=== PATIENT | female | born 1980 | race African-American/Black ===

== ENCOUNTER 2018-06-06 12:37 | Emergency (ER) | payer MEDICAID ==
[~2018-06-06] VITALS: Ht 165.1 cm; Wt 123.4 kg
[~2018-06-06 12:37] MED LIST: CLON-528 PO; DIPH25CA83 PO; IBUP-1984 PO; MECL12.584 PO; NEBU-107; ONDA4TAB6 PO; ONDA8TAB9 PO
[2018-06-06] MEDS ORDERED: ipratropium/albuterol 3ml nebule NEB ONE (13:00)
[2018-06-06 13:19] LABS: BASOPHILS % (AUTO) 0.5 % (0-1); EOSINOPHILS # (AUTO) 0.1 X10'3 (0-0.9); EOSINOPHILS % (AUTO) 1.2 % (0-6); HEMATOCRIT 44.1 % (35.0-45.0); HEMOGLOBIN 15.1 g/dl (12.0-16.0); LYMPHOCYTES # (AUTO) 2.6 X10'3 (1.1-4.8); LYMPHOCYTES % (AUTO) 45.3 % (21-51); MEAN CORPUSCULAR HEMOGLOBIN 29.7 PG (27.0-31.0); MEAN CORPUSCULAR HGB CONC 34.2 % (33.0-36.5); MEAN PLATELET VOLUME 8.4 FL (7.4-10.4); MONOCYTES # (AUTO) 0.4 X10'3 (0-0.9); MONOCYTES % (AUTO) 7.7 % (2-12); NEUTROPHILS # (AUTO) 2.6 X10'3 (1.8-7.7); NEUTROPHILS % (AUTO) 45.3 % (42-75); PLATELET COUNT 284 X10'3 (140-440); RED BLOOD COUNT 5.07 X10'6 (4.20-5.60); RED CELL DISTRIBUTION WIDTH 12.8 % (11.5-14.5); WHITE BLOOD COUNT 5.7 X10'3 (4.5-11.0)
[2018-06-06 13:31] LABS: ALANINE AMINOTRANSFERASE 74 U/L (12-78); ALBUMIN 3.3 G/DL (3.4-5.0); ALBUMIN/GLOBULIN RATIO 0.8 (1.1-1.5); ALKALINE PHOSPHATASE 87 IU/L (46-116); ANION GAP 12 (8-16); ASPARTATE AMINO TRANSFERASE 52 U/L (10-37); BILIRUBIN,TOTAL 0.4 MG/DL (0.1-1.0); BLOOD UREA NITROGEN 5 MG/DL (7-18); BUN/CREATININE RATIO 7.8 (6.6-38.0); CALCIUM 8.6 MG/DL (8.5-10.1); CHLORIDE 101 MMOL/L (99-107); CREATININE 0.64 MG/DL (0.40-0.90); GLUCOSE 162 MG/DL (70-104); POTASSIUM 3.3 MMOL/L (3.5-5.1); SODIUM 138 MMOL/L (135-145); TOTAL CARBON DIOXIDE 25.5 MMOL/L (24-32); TOTAL PROTEIN 7.4 G/DL (6.4-8.2); eGFR > 90 ML/MIN
[2018-06-06] MEDS ORDERED: amoxicillin 250mg capsule PO ONE (15:05)
[2018-06-06] MEDS ORDERED: ondansetron 4mg rapidly disintigrating tab PO ONE (15:05)
[2018-06-06] MEDS ORDERED: HYDROcodone/acetaminophen 5mg/325mg tablet PO ONE (15:05)
[2018-06-06] MEDS ORDERED: AMOX500C2 PO (15:07)
[2018-06-06] MEDS ORDERED: ALBU8.5H8 IH (15:07)
[2018-06-06] MEDS ORDERED: ONDA4TAB6 PO (15:07)
[2018-06-06 15:42] VITALS: BP 137/93
== END 2018-06-06 16:49 | disposition home or self-care (01) ==
LOC: ER 12:37
DX: J02.9 Acute pharyngitis, unspecified (principal); I48.91 Unspecified atrial fibrillation; I10 Essential (primary) hypertension; Z86.69 Personal history of other diseases of the nervous system and sense organs; Z98.51 Tubal ligation status; Z88.1 Allergy status to other antibiotic agents; Z98.890 Other specified postprocedural states; Z88.5 Allergy status to narcotic agent; Z88.8 Allergy status to other drugs, medicaments and biological substances; Z79.2 Long term (current) use of antibiotics; Z79.899 Other long term (current) drug therapy
CPT/HCPCS: 36415; 71046; 80053; 83605; 85025; 87040; 87502; 87503; 93005; 94640; 99284

== ENCOUNTER 2018-07-21 12:15 | Emergency (ER) | payer MEDICAID ==
[~2018-07-21] VITALS: Ht 165.1 cm; Wt 118.2 kg
[~2018-07-21 12:15] MED LIST changes: +ALBU8.5H8 IH
[2018-07-21 12:18] VITALS: BP 177/134
[2018-07-21] MEDS ORDERED: clonazePAM 0.5mg tablet PO ONE (12:40)
[2018-07-21] MEDS ORDERED: AMLO10TA PO (12:41)
[2018-07-21] MEDS ORDERED: CLON-528 PO (12:41)
== END 2018-07-21 13:16 | disposition home or self-care (01) ==
LOC: ER 12:16
DX: R42 Dizziness and giddiness (principal); I48.91 Unspecified atrial fibrillation; I10 Essential (primary) hypertension; Z98.890 Other specified postprocedural states; Z76.0 Encounter for issue of repeat prescription; Z98.51 Tubal ligation status; Z88.1 Allergy status to other antibiotic agents; Z88.5 Allergy status to narcotic agent; Z88.8 Allergy status to other drugs, medicaments and biological substances; Z79.899 Other long term (current) drug therapy
CPT/HCPCS: 99283

== ENCOUNTER 2018-09-17 08:21 | Emergency (ER) | payer MEDICAID ==
[~2018-09-17] VITALS: Ht 165.1 cm; Wt 120.4 kg
[~2018-09-17 08:21] MED LIST changes: +AMLO10TA PO; +AMLO10TA4 PO
[2018-09-17 08:27] VITALS: BP 139/93
[2018-09-17] MEDS ORDERED: albuterol 2.5 MG/3 ML nebule NEB ONE (08:45)
[2018-09-17] MEDS ORDERED: ALBU18HF2 INH (09:13)
== END 2018-09-17 09:30 | disposition home or self-care (01) ==
LOC: ER 08:22
DX: B34.9 Viral infection, unspecified (principal); I48.91 Unspecified atrial fibrillation; I10 Essential (primary) hypertension; Z98.51 Tubal ligation status; Z88.1 Allergy status to other antibiotic agents; Z88.5 Allergy status to narcotic agent; Z88.8 Allergy status to other drugs, medicaments and biological substances; Z79.899 Other long term (current) drug therapy
CPT/HCPCS: 71045; 94640; 94760; 99283

== ENCOUNTER 2018-10-06 23:19 | Emergency (ER) | payer MEDICAID ==
[~2018-10-06] VITALS: Ht 165.1 cm; Wt 113.6 kg
[~2018-10-06 23:19] MED LIST changes: +ALBU18HF2 INH
[2018-10-06] MEDS ORDERED: normal saline 1000ML IV soln IV ONE (23:45)
[2018-10-06] MEDS ORDERED: ipratropium/albuterol 3ml nebule NEB ONE (23:45)
[2018-10-07] MEDS ORDERED: potassium 10mEq/100ml NS w/LIDOcaine (10mg/bag) IV ONE (01:00)
[2018-10-07] MEDS ORDERED: potassium Cl 20 mEq SR tablet PO ONE (01:00)
[2018-10-07 01:05] LABS: PARTIAL THROMBOPLASTIN TIME 29 SECONDS (22-32); PROTHROMBIN TIME 10.2 SECONDS (9.0-12.0)
[2018-10-07 01:17] LABS: ALANINE AMINOTRANSFERASE 50 U/L (12-78); ALBUMIN 3.5 G/DL (3.4-5.0); ALBUMIN/GLOBULIN RATIO 0.9 (1.1-1.5); ALKALINE PHOSPHATASE 74 IU/L (46-116); ANION GAP 10 (8-16); ASPARTATE AMINO TRANSFERASE 38 U/L (10-37); BILIRUBIN,TOTAL 0.3 MG/DL (0.1-1.0); BLOOD UREA NITROGEN 8 MG/DL (7-18); BUN/CREATININE RATIO 11.4 (6.6-38.0); CALCIUM 8.4 MG/DL (8.5-10.1); CHLORIDE 104 MMOL/L (99-107); GLUCOSE 126 MG/DL (70-104); MAGNESIUM 1.8 MG/DL (1.5-2.4); SODIUM 138 MMOL/L (135-145); TOTAL CARBON DIOXIDE 24.5 MMOL/L (24-32); TOTAL PROTEIN 7.6 G/DL (6.4-8.2); eGFR > 90 ML/MIN
[2018-10-07 01:22] LABS: BASOPHILS # (AUTO) 0.1 X10'3 (0-0.2); BASOPHILS % (AUTO) 1.2 % (0-1); EOSINOPHILS # (AUTO) 0.3 X10'3 (0-0.9); HEMATOCRIT 42.8 % (35.0-45.0); HEMOGLOBIN 14.4 g/dl (12.0-16.0); LYMPHOCYTES # (AUTO) 2.3 X10'3 (1.1-4.8); LYMPHOCYTES % (AUTO) 24.4 % (21-51); MEAN CORPUSCULAR HEMOGLOBIN 29.3 PG (27.0-31.0); MEAN CORPUSCULAR HGB CONC 33.7 g/dL (33.0-36.5); MEAN CORPUSCULAR VOLUME 86.9 FL (78-98); MEAN PLATELET VOLUME 8.5 FL (7.4-10.4); MONOCYTES # (AUTO) 0.5 X10'3 (0-0.9); MONOCYTES % (AUTO) 5.8 % (2-12); NEUTROPHILS # (AUTO) 6.2 X10'3 (1.8-7.7); NEUTROPHILS % (AUTO) 65.6 % (42-75); PLATELET COUNT 331 X10'3 (140-440); RED BLOOD COUNT 4.93 X10'6 (4.20-5.60); RED CELL DISTRIBUTION WIDTH 13.7 % (11.5-14.5); WHITE BLOOD COUNT 9.4 X10'3 (4.5-11.0)
[2018-10-07] MEDS ORDERED: levoFLOXACIN-Levaquin 750MG/D5 150 ML IV STA (02:27)
[2018-10-07] MEDS ORDERED: ipratropium/albuterol 3ml nebule NEB ONE (02:30)
[2018-10-07 02:49] VITALS: BP 159/112
[2018-10-07] MEDS ORDERED: methylPREDNISolone sod succ 125mg/2ml vial IV ONE (02:55)
[2018-10-07] MEDS ORDERED: ondansetron/PF 4mg/2ml inj IV ONE (02:55)
[2018-10-07] MEDS ORDERED: HYDROcodone/acetaminophen 5mg/325mg tablet PO ONE (02:55)
[2018-10-07] MEDS ORDERED: LEVO750T21 PO (03:25)
[2018-10-07] MEDS ORDERED: PRED10TA PO (03:25)
[2018-10-07] MEDS ORDERED: ALBU8.5H8 IH (03:25)
--- NOTE | 2018-10-07 04:02 | NUR ---
Pt was up to the BR and she said that her breathing is much improved. MD made aware.
[2018-10-07 04:13] LABS: URINE HCG NEGATIVE (NEG)
[2018-10-07 04:14] LABS: CLARITY,URINE CLEAR (Clear); COLOR,URINE STRAW (Yellow); GLUCOSE, URINE NEGATIVE (Neg); KETONES,URINE NEGATIVE (Neg); LEUKOCYTE ESTERASE ,URINE NEGATIVE (Neg); NITRITES, URINE NEGATIVE (Neg); OCCULT BLOOD,URINE NEGATIVE (Neg); PROTEIN,URINE NEGATIVE (Neg); UROBILINOGEN,URINE 0.2 E.U/dL (0.2-1.0)
[2018-10-07 04:15] LABS: UA COLLECTION TYPE NON-SPECIFIED
== END 2018-10-07 04:47 | disposition home or self-care (01) ==
LOC: ER 23:20
DX: J40 Bronchitis, not specified as acute or chronic (principal); J04.0 Acute laryngitis; I10 Essential (primary) hypertension; I48.91 Unspecified atrial fibrillation; Z98.51 Tubal ligation status; Z98.890 Other specified postprocedural states; Z88.1 Allergy status to other antibiotic agents; Z88.8 Allergy status to other drugs, medicaments and biological substances; Z88.5 Allergy status to narcotic agent; Z79.899 Other long term (current) drug therapy
CPT/HCPCS: 36415; 71045; 80053; 81003; 81025; 83605; 83735; 84145; 85025; 85610; 85730; 87040; 93005; 94640; 94760; 96365; 96366; 96375; 99284; J1956; J2405; J2930; J3480; J7030

== ENCOUNTER 2019-04-09 13:44 | Emergency (ER) | payer MEDICAID ==
[~2019-04-09] VITALS: Ht 165.1 cm; Wt 113.6 kg
[~2019-04-09 13:44] MED LIST changes: -ALBU18HF2 INH; -AMLO10TA4 PO; -DIPH25CA83 PO; -MECL12.584 PO; -ONDA4TAB6 PO; -ONDA8TAB9 PO; +PRED10TA PO
[2019-04-09] MEDS ORDERED: predniSONE 20 mg tablet PO ONE (14:20)
[2019-04-09] MEDS ORDERED: ondansetron 4mg rapidly disintigrating tab PO ONE (14:20)
[2019-04-09] MEDS ORDERED: ONDA4TAB12 PO (15:25)
[2019-04-09 15:31] VITALS: BP 148/100
== END 2019-04-09 15:37 | disposition home or self-care (01) ==
LOC: ER 13:45
DX: R42 Dizziness and giddiness (principal); T43.225A Adverse effect of selective serotonin reuptake inhibitors, initial encounter; T42.1X5A Adverse effect of iminostilbenes, initial encounter; R06.02 Shortness of breath; R11.0 Nausea; I48.91 Unspecified atrial fibrillation; I10 Essential (primary) hypertension; Z98.51 Tubal ligation status; Z88.1 Allergy status to other antibiotic agents; Z88.5 Allergy status to narcotic agent; Z88.8 Allergy status to other drugs, medicaments and biological substances; Z79.899 Other long term (current) drug therapy; Y92.89 Other specified places as the place of occurrence of the external cause
CPT/HCPCS: 93005; 99283; J7512

== ENCOUNTER 2020-11-13 10:26 | Emergency (ER) | payer MEDICAID, OTHER ==
[~2020-11-13] VITALS: Ht 165.1 cm; Wt 89.0 kg
[~2020-11-13 10:26] MED LIST changes: +ONDA4TAB12 PO
[2020-11-13 10:31] VITALS: BP 168/84
== END 2020-11-13 14:00 | disposition home or self-care (01) ==
LOC: ER 10:27
DX: R22.42 Localized swelling, mass and lump, left lower limb (principal); G89.29 Other chronic pain; M25.562 Pain in left knee; I10 Essential (primary) hypertension; E11.9 Type 2 diabetes mellitus without complications; I48.91 Unspecified atrial fibrillation; Z86.69 Personal history of other diseases of the nervous system and sense organs; Z98.51 Tubal ligation status; Z98.890 Other specified postprocedural states; Z88.1 Allergy status to other antibiotic agents; Z88.8 Allergy status to other drugs, medicaments and biological substances; Z88.5 Allergy status to narcotic agent; Z79.899 Other long term (current) drug therapy
CPT/HCPCS: 93971; 99284

== ENCOUNTER 2020-12-28 11:28 | Emergency (ER) | payer MEDICAID ==
[~2020-12-28] VITALS: Ht 165.1 cm; Wt 85.0 kg
[2020-12-28 11:45] VITALS: BP 118/80
[2020-12-28] MEDS ORDERED: DIPH28.33 TOP (12:15)
== END 2020-12-28 12:33 | disposition home or self-care (01) ==
LOC: ER 11:29
DX: S60.561A Insect bite (nonvenomous) of right hand, initial encounter (principal); R50.9 Fever, unspecified; I48.91 Unspecified atrial fibrillation; I10 Essential (primary) hypertension; E11.9 Type 2 diabetes mellitus without complications; Z86.69 Personal history of other diseases of the nervous system and sense organs; Z98.51 Tubal ligation status; Z98.890 Other specified postprocedural states; Z88.1 Allergy status to other antibiotic agents; Z88.8 Allergy status to other drugs, medicaments and biological substances; Z88.5 Allergy status to narcotic agent; Z79.899 Other long term (current) drug therapy; W57.XXXA Bitten or stung by nonvenomous insect and other nonvenomous arthropods, initial encounter; Y93.89 Activity, other specified; Y92.89 Other specified places as the place of occurrence of the external cause; Y99.8 Other external cause status
CPT/HCPCS: 99282

== ENCOUNTER 2021-04-10 05:58 | Emergency (ER) | payer MEDICAID ==
[~2021-04-10] VITALS: Ht 165.1 cm; Wt 7.3 kg
[~2021-04-10 05:58] MED LIST changes: +ALBU8.5H17 IH; -ALBU8.5H8 IH; +DIPH28.33 TOP
[2021-04-10 06:05] VITALS: BP 120/86
[2021-04-10] MEDS ORDERED: predniSONE 20 mg tablet PO SCH (06:50)
[2021-04-10] MEDS ORDERED: PRED20TA PO (06:52)
[2021-04-10] MEDS ORDERED: AMOX-101 PO (07:32)
== END 2021-04-10 08:31 | disposition home or self-care (01) ==
LOC: ER 05:59
DX: J02.0 Streptococcal pharyngitis (principal); I48.91 Unspecified atrial fibrillation; I10 Essential (primary) hypertension; E11.9 Type 2 diabetes mellitus without complications; Z86.69 Personal history of other diseases of the nervous system and sense organs; Z98.51 Tubal ligation status; Z98.890 Other specified postprocedural states; Z88.1 Allergy status to other antibiotic agents; Z88.8 Allergy status to other drugs, medicaments and biological substances; Z79.899 Other long term (current) drug therapy
CPT/HCPCS: 87880; 99283; J7512

== ENCOUNTER 2021-09-30 09:31 | Emergency (ER) | payer SELFPAY ==
[~2021-09-30] VITALS: Ht 165.1 cm; Wt 63.6 kg
[2021-09-30 09:49] VITALS: BP 115/83
[2021-09-30] MEDS ORDERED: HYDROcodone/acetaminophen 5mg/325mg tablet PO ONE (10:05)
[2021-09-30] MEDS ORDERED: amox tr/potassium clavulanate 875/125mg TAB PO ONE (10:05)
[2021-09-30] MEDS ORDERED: AMOX-117 PO (10:14)
--- NOTE | 2021-09-30 10:35 | NUR ---
Pt given and understands d/c instructions. Ambulatory with a steady gait.
== END 2021-09-30 10:35 | disposition home or self-care (01) ==
LOC: ER 09:32
DX: K04.7 Periapical abscess without sinus (principal); K08.89 Other specified disorders of teeth and supporting structures; I48.91 Unspecified atrial fibrillation; I10 Essential (primary) hypertension; E11.9 Type 2 diabetes mellitus without complications; Z86.69 Personal history of other diseases of the nervous system and sense organs; Z98.51 Tubal ligation status; Z98.890 Other specified postprocedural states; Z88.1 Allergy status to other antibiotic agents; Z88.8 Allergy status to other drugs, medicaments and biological substances; Z88.5 Allergy status to narcotic agent; Z79.2 Long term (current) use of antibiotics; Z79.899 Other long term (current) drug therapy
CPT/HCPCS: 99283

== ENCOUNTER 2021-10-23 08:03 | Emergency (ER) | payer OTHER ==
[~2021-10-23] VITALS: Ht 165.1 cm; Wt 63.6 kg
[2021-10-23 08:05] VITALS: BP 117/76
[2021-10-23] MEDS ORDERED: AMOX-101 PO (08:46)
[2021-10-23] MEDS ORDERED: ALBU8.5H17 IH (08:46)
--- NOTE | 2021-10-23 09:05 | NUR ---
PATIENT'S CELL PHONE NUMBER:
== END 2021-10-23 09:44 | disposition home or self-care (01) ==
LOC: ER 08:03
DX: J02.0 Streptococcal pharyngitis (principal); Z20.822 Contact with and (suspected) exposure to COVID-19; I48.91 Unspecified atrial fibrillation; I10 Essential (primary) hypertension; E11.9 Type 2 diabetes mellitus without complications; Z98.51 Tubal ligation status; Z86.69 Personal history of other diseases of the nervous system and sense organs; Z98.890 Other specified postprocedural states; Z88.8 Allergy status to other drugs, medicaments and biological substances; Z88.5 Allergy status to narcotic agent; Z79.2 Long term (current) use of antibiotics; Z88.1 Allergy status to other antibiotic agents; Z79.899 Other long term (current) drug therapy
CPT/HCPCS: 87635; 99283; C9803

== ENCOUNTER 2022-01-05 16:38 | Emergency (ER) | payer SELFPAY ==
[~2022-01-05] VITALS: Ht 165.1 cm; Wt 135.0 kg
[2022-01-05 16:42] VITALS: BP 111/73
== END 2022-01-05 18:47 | disposition left against medical advice (07) ==
LOC: ER 16:39
DX: J02.9 Acute pharyngitis, unspecified (principal); Z53.21 Procedure and treatment not carried out due to patient leaving prior to being seen by health care provider

== ENCOUNTER 2022-04-25 07:19 | Emergency (ER) | payer MEDICAID ==
[~2022-04-25] VITALS: Ht 165.1 cm; Wt 63.6 kg
[2022-04-25] MEDS ORDERED: NO HOME MEDS (07:47)
[2022-04-25] MEDS ORDERED: albuterol 2.5 MG/3 ML nebule NEB ONE (07:50)
[2022-04-25 09:01] LABS: BASOPHILS # (AUTO) 0.1 X10'3 (0-0.2); EOSINOPHILS # (AUTO) 0.8 X10'3 (0-0.9); EOSINOPHILS % (AUTO) 11.6 % (0-6); LYMPHOCYTES # (AUTO) 2.6 X10'3 (1.1-4.8); MEAN CORPUSCULAR HEMOGLOBIN 30.8 PG (27.0-31.0); MEAN CORPUSCULAR HGB CONC 34.2 g/dL (33.0-36.5); MEAN CORPUSCULAR VOLUME 90.1 FL (78-98); MEAN PLATELET VOLUME 7.7 FL (7.4-10.4); MONOCYTES # (AUTO) 0.3 X10'3 (0-0.9); MONOCYTES % (AUTO) 4.2 % (2-12); NEUTROPHILS % (AUTO) 44.2 % (42-75); PLATELET COUNT 347 X10'3 (140-440); RED BLOOD COUNT 4.89 X10'6 (4.20-5.60); RED CELL DISTRIBUTION WIDTH 13.2 % (11.5-14.5); WHITE BLOOD COUNT 6.8 X10'3 (4.5-11.0)
[2022-04-25 09:39] LABS: ALANINE AMINOTRANSFERASE 20 U/L (12-78); ALBUMIN 3.2 G/DL (3.4-5.0); ALBUMIN/GLOBULIN RATIO 0.8 (1.1-1.5); ALKALINE PHOSPHATASE 55 IU/L (46-116); ANION GAP 8 (8-16); ASPARTATE AMINO TRANSFERASE 17 U/L (10-37); BILIRUBIN,TOTAL 0.3 MG/DL (0.1-1.0); BLOOD UREA NITROGEN 8 MG/DL (7-18); BUN/CREATININE RATIO 13.3 (6.6-38.0); CALCIUM 8.9 MG/DL (8.5-10.1); CHLORIDE 108 MMOL/L (99-107); GLUCOSE 93 MG/DL (70-104); POTASSIUM 3.7 MMOL/L (3.5-5.1); SODIUM 141 MMOL/L (135-145); TOTAL CARBON DIOXIDE 25.1 MMOL/L (24-32); TOTAL PROTEIN 7.3 G/DL (6.4-8.2); eGFR > 90 ML/MIN
[2022-04-25 09:48] LABS: BETA HCG,QUANTITATIVE < 1.0 mIU/ml
[2022-04-25] MEDS ORDERED: ipratropium/albuterol 3ml nebule NEB ONE ×2 (09:50→12:26)
[2022-04-25 10:19] LABS: D-DIMER 0.74 MG/L FEU (0-0.50)
[2022-04-25] MEDS ORDERED: iohexol 350MG/ML 100ml bottle IV ONE (11:32)
[2022-04-25 11:46] VITALS: BP_DIAS 88
[2022-04-25] MEDS ORDERED: dexamethasone sod phosphate 10mg/ml inj IV STA (12:27)
[2022-04-25] MEDS ORDERED: magnesium 2GM in 50ml NS 50 ML IV ONE (12:27)
[2022-04-25] MEDS ORDERED: IPRA3AMP31 IH (13:19)
[2022-04-25] MEDS ORDERED: NEBU-161 (13:19)
[2022-04-25] MEDS ORDERED: PRED20TA PO (13:19)
[2022-04-25] MEDS ORDERED: LEVO-65 PO (13:20)
[2022-04-25 14:11] VITALS: BP_SYST 112
== END 2022-04-25 15:38 | disposition home or self-care (01) ==
LOC: ER 07:20
DX: R06.02 Shortness of breath (principal); Z20.822 Contact with and (suspected) exposure to COVID-19; R05.9 Cough, unspecified; R68.83 Chills (without fever); I48.91 Unspecified atrial fibrillation; I10 Essential (primary) hypertension; E11.9 Type 2 diabetes mellitus without complications; Z98.51 Tubal ligation status; Z98.890 Other specified postprocedural states; Z88.8 Allergy status to other drugs, medicaments and biological substances; Z88.1 Allergy status to other antibiotic agents; Z79.2 Long term (current) use of antibiotics; Z79.899 Other long term (current) drug therapy
CPT/HCPCS: 36415; 71046; 80053; 83880; 84145; 84484; 84702; 85025; 85379; 87502; 87503; 87811; 93970; 94640; 96365; 96375; 99285; J1100; J3475; 93971; 94644; 94760; 99284; J3490; Q9967

== ENCOUNTER 2022-05-15 23:03 | Emergency (ER) | payer MEDICAID ==
[~2022-05-15] VITALS: Ht 165.1 cm; Wt 70.0 kg
[~2022-05-15 23:03] MED LIST changes: +IPRA3AMP31 IH; +LEVO-65 PO; +NEBU-161; +NO HOME MEDS; +PRED20TA PO
[2022-05-15] MEDS ORDERED: LORazepam 2 mg/ml vial IV ONE (23:55)
[2022-05-16] MEDS ORDERED: diphenhydrAMINE 50 mg/ml inj IV ONE (00:05)
[2022-05-16 00:10] LABS: ALANINE AMINOTRANSFERASE 18 U/L (12-78); ALBUMIN 3.4 G/DL (3.4-5.0); ALBUMIN/GLOBULIN RATIO 0.9 (1.1-1.5); ALKALINE PHOSPHATASE 62 IU/L (46-116); ANION GAP 10 (8-16); ASPARTATE AMINO TRANSFERASE 16 U/L (10-37); BILIRUBIN,TOTAL 0.3 MG/DL (0.1-1.0); BLOOD UREA NITROGEN 10 MG/DL (7-18); BUN/CREATININE RATIO 16.9 (6.6-38.0); CALCIUM 9.1 MG/DL (8.5-10.1); CHLORIDE 106 MMOL/L (99-107); CREATININE 0.59 MG/DL (0.40-0.90); GLUCOSE 155 MG/DL (70-104); POTASSIUM 3.9 MMOL/L (3.5-5.1); SODIUM 139 MMOL/L (135-145); TOTAL PROTEIN 7.3 G/DL (6.4-8.2); eGFR > 90 ML/MIN
[2022-05-16 00:11] LABS: BASOPHILS % (AUTO) 0.8 % (0-1); EOSINOPHILS % (AUTO) 0.8 % (0-6); HEMATOCRIT 44.6 % (35.0-45.0); HEMOGLOBIN 15.5 g/dl (12.0-16.0); LYMPHOCYTES # (AUTO) 1.5 X10'3 (1.1-4.8); MEAN CORPUSCULAR HEMOGLOBIN 30.8 PG (27.0-31.0); MEAN CORPUSCULAR HGB CONC 34.6 g/dL (33.0-36.5); MEAN CORPUSCULAR VOLUME 88.8 FL (78-98); MONOCYTES # (AUTO) 0.4 X10'3 (0-0.9); MONOCYTES % (AUTO) 10.7 % (2-12); NEUTROPHILS # (AUTO) 1.9 X10'3 (1.8-7.7); NEUTROPHILS % (AUTO) 48.7 % (42-75); PLATELET COUNT 228 X10'3 (140-440); RED BLOOD COUNT 5.02 X10'6 (4.20-5.60); RED CELL DISTRIBUTION WIDTH 13.6 % (11.5-14.5); WHITE BLOOD COUNT 3.9 X10'3 (4.5-11.0)
[2022-05-16] MEDS ORDERED: iohexol 350MG/ML 100ml bottle IV ONE (01:00)
[2022-05-16] MEDS ORDERED: ipratropium/albuterol 3ml nebule NEB ONE (02:25)
[2022-05-16] MEDS ORDERED: ketorolac trometh. 30mg/ml inj. IV ONE (02:25)
[2022-05-16 03:07] VITALS: BP 125/87
== END 2022-05-16 03:18 | disposition home or self-care (01) ==
LOC: ER 23:04
DX: R06.02 Shortness of breath (principal)
CPT/HCPCS: 36415; 71045; 71275; 80053; 83880; 84484; 85025; 93005; 94640; 96374; 99285; J1200; J3490; Q9967; 94760; 99284

== ENCOUNTER 2023-03-16 23:37 | Emergency (ER) | payer MEDICAID ==
[~2023-03-16] VITALS: Ht 165.1 cm; Wt 70.5 kg
[~2023-03-16 23:37] MED LIST changes: -ALBU8.5H17 IH; -AMLO10TA PO; -CLON-528 PO; -DIPH28.33 TOP; -IBUP-1984 PO; -NEBU-107; -ONDA4TAB12 PO; -PRED10TA PO; -PRED20TA PO
[2023-03-17 00:16] VITALS: BP 148/84; PULSE 85; RESP 20; TEMP 98.8; O2SAT 96
[2023-03-17] MEDS ORDERED: HYDROmorphone 1 mg/ml syringe IV ONE (01:25)
[2023-03-17] MEDS ORDERED: ondansetron/PF 4mg/2ml inj IV ONE (01:25)
[2023-03-17] MEDS ORDERED: ketorolac trometh. 30mg/ml inj. IV ONE (01:25)
[2023-03-17 02:04] LABS: BASOPHILS # (AUTO) 0.1 X10'3 (0-0.2); EOSINOPHILS # (AUTO) 0.2 X10'3 (0-0.9); EOSINOPHILS % (AUTO) 3.2 % (0-6); HEMATOCRIT 44.9 % (35.0-45.0); HEMOGLOBIN 15.4 g/dl (12.0-16.0); LYMPHOCYTES # (AUTO) 2.8 X10'3 (1.1-4.8); LYMPHOCYTES % (AUTO) 37.9 % (21-51); MEAN CORPUSCULAR HEMOGLOBIN 30.7 PG (27.0-31.0); MEAN CORPUSCULAR HGB CONC 34.3 g/dL (33.0-36.5); MEAN CORPUSCULAR VOLUME 89.7 FL (78-98); MEAN PLATELET VOLUME 7.6 FL (7.4-10.4); MONOCYTES # (AUTO) 0.5 X10'3 (0-0.9); MONOCYTES % (AUTO) 6.7 % (2-12); NEUTROPHILS # (AUTO) 3.8 X10'3 (1.8-7.7); NEUTROPHILS % (AUTO) 51.2 % (42-75); PLATELET COUNT 320 X10'3 (140-440); RED CELL DISTRIBUTION WIDTH 13.1 % (11.5-14.5); WHITE BLOOD COUNT 7.5 X10'3 (4.5-11.0)
[2023-03-17 02:17] LABS: ALANINE AMINOTRANSFERASE 11 U/L (12-78); ALBUMIN 3.5 G/DL (3.4-5.0); ALBUMIN/GLOBULIN RATIO 0.9 (1.1-1.5); ALKALINE PHOSPHATASE 49 IU/L (46-116); ANION GAP 10 (8-16); ASPARTATE AMINO TRANSFERASE 14 U/L (10-37); BILIRUBIN,TOTAL 0.7 MG/DL (0.1-1.0); BLOOD UREA NITROGEN 7 MG/DL (7-18); BUN/CREATININE RATIO 11.1 (10.0-20.0); CALCIUM 8.9 MG/DL (8.5-10.1); CHLORIDE 107 MMOL/L (99-107); CREATININE 0.63 MG/DL (0.40-0.90); GLUCOSE 111 MG/DL (70-104); LIPASE 51 U/L (73-393); POTASSIUM 3.3 MMOL/L (3.5-5.1); SODIUM 140 MMOL/L (135-145); TOTAL CARBON DIOXIDE 22.9 MMOL/L (24-32); TOTAL PROTEIN 7.2 G/DL (6.4-8.2); eCRCL 104 ML/MIN; eGFR > 90 ML/MIN
[2023-03-17 02:43] LABS: BILIRUBIN,URINE NEGATIVE (Neg); CLARITY,URINE SLIGHTLY CLOUDY (Clear); COLOR,URINE STRAW (Yellow); GLUCOSE, URINE NEGATIVE (Neg); KETONES,URINE NEGATIVE (Neg); LEUKOCYTE ESTERASE ,URINE TRACE (Neg); NITRITES, URINE NEGATIVE (Neg); OCCULT BLOOD,URINE NEGATIVE (Neg); PROTEIN,URINE NEGATIVE (Neg); UROBILINOGEN,URINE 0.2 E.U/dL (0.2-1.0)
[2023-03-17 02:51] LABS: UA COLLECTION TYPE CLN CATCH MIDSTREAM
[2023-03-17 02:53] LABS: SQUAMOUS EPITHELIAL CELL,UR MODERATE /LPF (FEW)
[2023-03-17 02:54] LABS: BACTERIA,URINE FEW /HPF (Neg); RBC,URINE 0-2 /HPF (0-2); WBC,URINE 0-4 /HPF (0-4)
[2023-03-17] MEDS ORDERED: HYDROcodone/acetaminophen 10/325mg tab PO ONE (03:25)
[2023-03-17] MEDS ORDERED: diphenhydrAMINE 25mg capsule PO ONE (03:25)
[2023-03-17] MEDS ORDERED: HYDR-3965 PO (03:26)
--- NOTE | 2023-03-17 03:57 | NUR ---
iv dc'd pt being discharged dressing applied
== END 2023-03-17 03:59 | disposition home or self-care (01) ==
LOC: ER 23:37
DX: R10.30 Lower abdominal pain, unspecified (principal); Z20.822 Contact with and (suspected) exposure to COVID-19
CPT/HCPCS: 36415; 74176; 80053; 81001; 83690; 85025; 87088; 96374; 96375; 99285; J1170; J1885; J2405; Q0163; 87077; 87186

== ENCOUNTER 2024-07-07 05:09 | Emergency (ER) | payer MEDICAID ==
[~2024-07-07] VITALS: Ht 165.1 cm; Wt 84.1 kg
[~2024-07-07 05:09] MED LIST changes: +BISA10SU11 RC; -LEVO-65 PO; -NO HOME MEDS; +polyethylene glycol 3350 pkt PO
[2024-07-07 05:11] VITALS: TEMP 97.9
[2024-07-07] MEDS ORDERED: methylPREDNISolone sod succ 125mg/2ml vial IV ONE (05:25)
[2024-07-07] MEDS ORDERED: LORazepam 2 mg/ml vial IV ONE (05:25)
[2024-07-07] MEDS ORDERED: FLUT1DIS20 INH (05:39)
[2024-07-07] MEDS ORDERED: MONT-48 PO (05:39)
[2024-07-07] MEDS ORDERED: METF-436 PO (05:42)
[2024-07-07] MEDS ORDERED: CLON-850 PO (05:43)
[2024-07-07] MEDS: methylPREDNISolone sod succ 125mg/2ml vial IM ONE (06:10)
[2024-07-07] MEDS: LORazepam 1 MG tablet PO ONE (06:10)
[2024-07-07] MEDS: albuterol 2.5 MG/3 ML nebule CONTNEB PRN (06:33)
[2024-07-07 06:37] VITALS: PULSE 70; RESP 20; O2SAT 90
[2024-07-07] MEDS: ondansetron 4mg rapidly disintigrating tab PO ONE (07:08)
[2024-07-07 07:16] LABS: BASOPHILS # (AUTO) 0.1 X10'3 (0-0.2); BASOPHILS % (AUTO) 0.7 % (0-1); EOSINOPHILS # (AUTO) 0.1 X10'3 (0-0.9); HEMATOCRIT 44.3 % (35.0-45.0); HEMOGLOBIN 15.3 g/dl (12.0-16.0); LYMPHOCYTES # (AUTO) 0.7 X10'3 (1.1-4.8); LYMPHOCYTES % (AUTO) 9.2 % (21-51); MEAN CORPUSCULAR HEMOGLOBIN 31.1 PG (27.0-31.0); MEAN CORPUSCULAR HGB CONC 34.4 g/dL (33.0-36.5); MEAN CORPUSCULAR VOLUME 90.5 FL (78-98); MEAN PLATELET VOLUME 8.1 FL (7.4-10.4); MONOCYTES # (AUTO) 0.3 X10'3 (0-0.9); MONOCYTES % (AUTO) 4.1 % (2-12); NEUTROPHILS # (AUTO) 6.3 X10'3 (1.8-7.7); PLATELET COUNT 228 X10'3 (140-440); RED CELL DISTRIBUTION WIDTH 13.3 % (11.5-14.5); WHITE BLOOD COUNT 7.4 X10'3 (4.5-11.0)
[2024-07-07 07:34] VITALS: PULSE 81; RESP 18; O2SAT 91
[2024-07-07 07:54] LABS: D-DIMER 0.51 MG/L FEU (0-0.50)
[2024-07-07 08:00] VITALS: BP 140/67; PULSE 98; RESP 20; O2SAT 93
[2024-07-07 08:04] LABS: ALBUMIN 3.5 G/DL (3.4-5.0); ANION GAP 10 (8-16); BLOOD UREA NITROGEN 8 MG/DL (7-18); BUN/CREATININE RATIO 12.5 (10.0-20.0); CALCIUM 8.3 MG/DL (8.5-10.1); CHLORIDE 108 MMOL/L (99-107); CREATININE 0.64 MG/DL (0.40-0.90); POTASSIUM 3.1 MMOL/L (3.5-5.1); PRO BRAIN NATRIURETIC PEPTIDE 101 PG/ML (0-125); SODIUM 139 MMOL/L (135-145); TOTAL CARBON DIOXIDE 21.4 MMOL/L (24-32); eCRCL 100 ML/MIN; eGFR > 90 ML/MIN
[2024-07-07] MEDS ORDERED: PRED20TA PO (08:06)
[2024-07-07 08:19] LABS: HCG SERUM QL NEGATIVE
[2024-07-07 08:20] LABS: GLUCOSE 156 MG/DL (70-104)
== END 2024-07-07 08:04 | disposition left against medical advice (07) ==
LOC: ER 05:09
DX: J45.909 Unspecified asthma, uncomplicated (principal); J96.90 Respiratory failure, unspecified, unspecified whether with hypoxia or hypercapnia; I48.91 Unspecified atrial fibrillation; E11.9 Type 2 diabetes mellitus without complications; I10 Essential (primary) hypertension; Z98.51 Tubal ligation status; Z88.1 Allergy status to other antibiotic agents; Z88.8 Allergy status to other drugs, medicaments and biological substances; Z91.041 Radiographic dye allergy status; Z79.52 Long term (current) use of systemic steroids; Z79.899 Other long term (current) drug therapy; Z20.822 Contact with and (suspected) exposure to COVID-19
CPT/HCPCS: 36415; 71045; 80048; 83880; 84484; 84703; 85025; 85379; 87502; 87503; 87811; 93005; 94644; 96372; 99291; J2919; J7030; 94640; 94760; A7015